=== PATIENT | female | born 1960 | race Caucasian/White ===

== ENCOUNTER → 2018-01-27 08:23 | Outpatient (CLI) | payer OTHER, SELFPAY ==
[2018-01-27 10:43] LABS: Alanine Aminotransferase 37 IU/L (9-52); Albumin 4.4 g/dL (3.5-5.0); Albumin Globulin Ratio 1.6 (1.0-2.8); Alkaline Phosphatase 78 U/L (38-126); Aspartate Aminotransferase 34 IU/L (14-36); BUN Creatinine Ratio 28.8 (6-22); Bilirubin Total 0.5 mg/dL (0.2-1.3); Blood Urea Nitrogen 23 mg/dL (7-17); Calcium 9.3 mg/dL (8.4-10.2); Carbon Dioxide 30 mmol/L (22-32); Chloride 103 mmol/L (98-107); Cholesterol 252 mg/dL (140-199); Estimated Glomerular Filt Rate > 60.0 mL/min (>60); Globulin 2.8 g/dL (1.7-4.1); Glucose 99 mg/dL (70-100); HDL Cholesterol 80 mg/dL (40-60); HEMOLYSIS < 15 (0-50); LDL Cholesterol Calculated 155 mg/dL (<100); Sodium 142 mmol/L (137-145); Total Protein 7.2 g/dL (6.3-8.2); Triglycerides 87 mg/dL (35-150)
== END ==
PROVIDERS: PCP Family Medicine; Visit Provider Family Medicine
DX: Z00.00 Encounter for general adult medical examination without abnormal findings (principal)
CPT/HCPCS: 36415; 80053; 80061

== ENCOUNTER → 2018-02-13 12:07 | Outpatient (CLI) | payer OTHER, SELFPAY ==
--- NOTE | 2018-02-13 12:18 | DI.CT.S_ITS ---
PROCEDURE: CT CHEST WO CON INDICATIONS: surveillance s/p lobectomy TECHNIQUE: Noncontrast 5 mm thick sections acquired from the pulmonary apices to the posterior costophrenic angles. 7 mm thick coronal and sagittal MIP reformats were then acquired. For radiation dose reduction, the following was used: automated exposure control, adjustment of mA and/or kV according to patient size. COMPARISON: [facility], CT, THORAX WITHOUT CONTRAST, 02/14/2017, 9:20. FINDINGS: Image quality: Excellent. Lungs and pleura: Again noted are postsurgical changes in posterior aspect of right lower lobe, unchanged from prior study. Pulmonary nodule or mass is seen. There is no air space opacities. No discrete No pleural effusions or pneumothorax. Central and peripheral airways are patent and normal in caliber. Mediastinum: Heart size is normal. No pericardial effusion. No mediastinal adenopathy by size criteria. Thoracic aorta and central pulmonary arteries are normal in size. Esophagus is normal in caliber. No hiatal hernia. Bones and chest wall: No suspicious bony lesions. No vertebral body compression fractures. No axillary or supraclavicular adenopathy by size criteria. Thyroid gland is within normal limits. Old healed fractures involving right posterior medial 10th and 11th ribs are again seen, which may represent postsurgical changes.. Abdomen: Visualized upper abdominal solid organs and bowel loops appear normal in the absence of contrast. IMPRESSION: No significant changes from previous study. No evidence of recurrence or metastatic disease. Dictated by: Carl Victor M.D. on 02/13/2018 at 14:01 Approved by: Carl Victor M.D. on 02/13/2018 at 14:11
== END ==
PROVIDERS: Family Provider Family Medicine; PCP Family Medicine; Visit Provider Family Medicine
DX: Z08 Encounter for follow-up examination after completed treatment for malignant neoplasm (principal); Z85.110 Personal history of malignant carcinoid tumor of bronchus and lung
CPT/HCPCS: 71250

== ENCOUNTER → 2018-08-17 11:48 | Outpatient (CLI) | payer OTHER, SELFPAY ==
--- NOTE | 2018-08-17 11:49 | DI.MG.S_ITS ---
BILATERAL DIGITAL SCREENING MAMMOGRAM 3D/2D WITH CAD: 08/17/2018 CLINICAL: Routine screening. Comparison is made to exams dated: 06/04/2016 mammogram, 05/01/2015 mammogram, and 02/20/2013 mammogram - [facility]. The tissue of both breasts is extremely dense, which lowers the sensitivity of mammography. Current study was also evaluated with a Computer Aided Detection (CAD) system. There is a 9 mm irregular asymmetry in the right breast middle depth lateral region seen on the craniocaudal view only. Finding is seen only on tomography. No other significant masses, calcifications, or other findings are seen in either breast. IMPRESSION: INCOMPLETE: NEEDS ADDITIONAL IMAGING EVALUATION The 9 mm irregular asymmetry in the right breast is indeterminate. Additional imaging with additional mammographic views and right breast ultrasound is recommended. This exam was interpreted at Station ID: [id number]. NOTE: For mammograms, a report in lay terms will be sent to the patient. Approximately 15% of breast malignancies will not be visualized mammographically. In the management of a palpable breast mass, a negative mammogram must not discourage biopsy of a clinically suspicious lesion. Electronically Signed By: Sandhya flor/:08/18/2018 15:37:40 letter sent: Additional Imaging Needed ACR BI-RADS Category 0: Incomplete 3340F
== END ==
PROVIDERS: PCP Family Medicine; Visit Provider Family Medicine
DX: Z12.31 Encounter for screening mammogram for malignant neoplasm of breast (principal)
CPT/HCPCS: 77063; 77067

== ENCOUNTER → 2018-09-01 09:55 | Outpatient (CLI) | payer OTHER, SELFPAY ==
--- NOTE | 2018-09-01 09:56 | DI.MG.S_ITS ---
UNILATERAL RIGHT DIGITAL DIAGNOSTIC MAMMOGRAM 3D/2D: 09/01/2018 CLINICAL: Additional evaluation requested from prior study. Comparison is made to exams dated: 08/17/2018 mammogram - [facility], 06/04/2016 mammogram, and 05/01/2015 mammogram - [facility]. The tissue of right breast is extremely dense, which lowers the sensitivity of mammography. The 9 mm irregular asymmetry in the right breast posterior depth lateral region seen on the craniocaudal tomography view only is not seen in additional views. No other significant masses or calcifications are seen in the breast. IMPRESSION: There is no mammographic evidence of malignancy. A 1 year screening mammogram is recommended. This exam was interpreted at Station ID: [id number]. NOTE: For mammograms, a report in lay terms will be sent to the patient. Approximately 15% of breast malignancies will not be visualized mammographically. In the management of a palpable breast mass, a negative mammogram must not discourage biopsy of a clinically suspicious lesion. Electronically Signed By: Rocío Serna M.D. lk/:09/01/2018 10:32:31 letter sent: Normal Exam ACR BI-RADS Category 2: Benign Finding(s) 3342F
== END ==
PROVIDERS: PCP Family Medicine; Visit Provider Family Medicine
DX: R92.8 Other abnormal and inconclusive findings on diagnostic imaging of breast (principal); N64.89 Other specified disorders of breast
CPT/HCPCS: 77065; G0279

== ENCOUNTER → 2020-04-15 09:36 | Outpatient (CLI) | payer OTHER, SELFPAY ==
[2020-04-15 10:57] LABS: Add Manual Diff / Slide Review NO; Basophils Absolute Auto 0 /uL (0-100); Basophils Percent Auto 0.8 % (0-2); Eosinophils Absolute Auto 300 /uL (0-450); Eosinophils Percent Auto 6.6 % (2-4); Hematocrit 41.8 % (36-46); Hemoglobin 14.1 g/dL (12.0-16.0); Lymphocytes Absolute Auto 1500 /uL (1100-4500); Lymphocytes Percent Auto 29.4 % (25-40); Mean Corpuscular HGB Conc 33.7 % (30-36); Mean Corpuscular Hemoglobin 30.7 PG (26-34); Mean Corpuscular Volume 91.2 fL (80-100); Monocytes Absolute Auto 400 /uL (0-900); Monocytes Percent Auto 7.9 % (3-14); Neutrophils Absolute Auto 2900 /uL (1500-7000); Neutrophils Percent Auto 55.3 % (50-75); Platelet Count 269 X10^3/uL (150-400); Red Blood Cell Count 4.58 X10^6/uL (4.0-5.2); Red Cell Distribution Width 13.8 % (11.6-14.8); White Blood Cell Count 5.2 X10^3/uL (4.5-11.0)
[2020-04-15 11:06] LABS: Alanine Aminotransferase 31 IU/L (<35); Albumin 4.7 g/dL (3.5-5.0); Albumin Globulin Ratio 1.5 (1.0-2.8); Alkaline Phosphatase 89 U/L (38-126); Aspartate Aminotransferase 32 IU/L (14-36); Bilirubin Total 0.4 mg/dL (0.2-1.3); Blood Urea Nitrogen 18 mg/dL (7-17); Calcium 9.3 mg/dL (8.4-10.2); Carbon Dioxide 27 mmol/L (22-32); Chloride 105 mmol/L (98-107); Estimated Glomerular Filt Rate > 60.0 mL/min (>60); Globulin 3.1 g/dL (1.7-4.1); Glucose 101 mg/dL (80-110); HEMOLYSIS < 15 (0-50); Potassium 4.1 mmol/L (3.4-5.1); Sodium 140 mmol/L (137-145); Total Protein 7.8 g/dL (6.3-8.2)
== END ==
PROVIDERS: PCP Family Medicine; Referring Provider Family Medicine; Visit Provider Family Medicine
DX: Z85.110 Personal history of malignant carcinoid tumor of bronchus and lung (principal); Z86.39 Personal history of other endocrine, nutritional and metabolic disease
CPT/HCPCS: 36415; 80053; 85025

== ENCOUNTER → 2020-05-02 13:32 | Outpatient (CLI) | payer OTHER, SELFPAY ==
[2020-05-05 07:37] LABS: COVID19 Sendout Not Detected (Not Detect)
== END ==
PROVIDERS: PCP Family Medicine; Visit Provider Physician Assistant
DX: Z11.59 Encounter for screening for other viral diseases (principal)
CPT/HCPCS: 87635

== ENCOUNTER 2020-05-05 10:35 | Day surgery (SDC) | payer OTHER, SELFPAY ==
[2020-05-05 10:48] VITALS: BP 135/94; PULSE 103; RESP 16; TEMP 35.7; O2SAT 97; BMI 25.7
[2020-05-05] MEDS: LACTATED RINGERS 1,000 ML 200 ML IV (10:56)
--- NOTE | 2020-05-05 11:40 | PM.HP.1 ---
History of Present Illness History of Present Illness Date Patient Seen: 05/05/20 Time Patient Seen: 11:40 Chief complaint: SCREENING COLONOSCOPY Narrative: The patient presents for colorectal sreening. She had previous colonoscopy 10 years ago which was normal. No personal or family history of colon cancer. On further history denies any recent gastrointestinal symptoms. No nausea, vomiting, abdominal pain, loss of appetite, unexplained weight loss, change in bowel habits, diarrhea, constipation, melena, hematochezia, or bright red blood per rectum. Patient History Medical History Carpal tunnel syndrome (Chronic ~2009) Eczema (Chronic ~1994) Hyperparathyroidism (Chronic ~2012) Lung cancer (Chronic ~2012) Seasonal allergies (Chronic ~1999) Vision disorder (Chronic) Surgical History Anesthesia (Resolved) History of carpal tunnel repair (~2012) History of lobectomy of lung (Resolved ~2012) Status post parathyroidectomy (~2012) Family & Social History Family History Father Heart disease Hypertension High cholesterol Mother Age: 95 Afib Deep vein blood clot of right lower extremity Arthritis High cholesterol Sister Age: 62 Asthma Osteoarthritis Grandfather No problems noted. Grandmother Diabetes mellitus Grandfather Cancer Grandmother No problems noted. Social History: household members significant other Tobacco & Substance use: Smoking Status Never smoker alcohol intake current alcohol intake frequency 0-2 drinks per day Substance Use Type does not use Meds Home Medications and Allergies Home Medications Medication Instructions Recorded Confirmed Type ibuprofen 200 mg tablet 800 mg PO Q8H PRN #0 tab 10/27/18 05/05/20 History aspirin 81 mg PO DAILY 05/05/20 05/05/20 History Allergies Allergy/AdvReac Type Severity Reaction Status Date / Time No Known Allergies Allergy Uncoded 05/05/20 10:43 Review of Systems Review of Systems Narrative: A 10 point review of systems is negative except as noted in the HPI Exam Vital Signs (past 8 hours): - 05/05/20 10:48 Temperature 96.2 F L Pulse Rate 103 H Respiratory Rate 16 Blood Pressure 135/94 H Pulse Oximetry 97 Oxygen Delivery Method Room Air Oxygen Flow Rate 0 Narrative Exam Narrative: General-no acute distress, well nourished HEENT-moist mucous membranes, no scleral icterus Neck-supple, no lymphadenopathy Chest- non labored respirations, clear to auscultation bilaterally Cardiac-regular rate no peripheral edema Abdomen-soft, nontender, non distended Extremities-warm, well perfused Neurological-alert and oriented, no focal deficits Assessment & Plan Assessment & Plan narrative: The patient requires colorectal screening and colonoscopy is recommended. Technical details were discussed. Risks, benefits, alternatives explained. Risks including but not limited to myocardial infarction, aspiration, bleeding, pain, missed lesion, incomplete examination, need for further radiographic studies, colonic perforation, and need for major abdominal surgery were discussed. All questions were answered to their satisfaction, and they are in agreement with this plan.
[2020-05-05] MEDS: MIDAZOLAM 5 MG/5 ML VIAL IV (11:49)
[2020-05-05] MEDS: fentaNYL 250 MCG/5 ML INJ IV (11:49)
[2020-05-05 12:12] VITALS: BP 118/81; PULSE 92; RESP 11; O2SAT 96
[2020-05-05 12:19] VITALS: BP 121/76; PULSE 95; RESP 11; TEMP 36.4; O2SAT 95
--- NOTE | 2020-05-05 12:21 | PM.OP.ENDO ---
Operative Date/Time/Diagnoses Date of procedure: 05/05/20 Time of procedure: 12:21 Pre-op diagnosis: Screening colonoscopy Post-op diagnosis: same Procedure & Clinicians Study performed: Colonoscopy Same procedure as scheduled: Yes Indications: 59-year-old female last colonoscopy 10 years ago presents for routine screening Surgeon: Kris Pineda Procedure Notes SCOAP/Timeout: Performed Procedure in detail: Patient placed in left lateral recumbent position. Time out was performed. Procedural sedation was administered with Versed and Fentanyl. Examination began with a thorough inspection of the perianal area there was no evidence of fissures, fistulae, external hemorrhoids or cutaneous malignancy. The colonoscopy scope was then placed into the rectum the the lumen was insufflated with air. The scope was carefully advanced forward. Ultimately the cecum was intubated and confirmed by identification of the ileocecal valve, the appendiceal orifice and the confluence of the taenia. The scope was then slowly withdrawn examining colon thoroughly in all directions. In the rectum the rectal columns were identified and retroflexion of the scope was performed for inspection of the distal rectum and anal canal. The colonoscopy was notable for the followin. Quality of the preparation-excellent 2. No masses or polyps Scope withdrawal time: 8 Sedation minutes: 24 Specimen(s): none sent Complications: none Impression: Normal colonoscopy Post-procedure Recommendations: Colonscopy in 10 years Disposition: same day surgery
[2020-05-05 12:22] VITALS: BP 125/82; PULSE 91; RESP 10; O2SAT 96
[2020-05-05 12:27] VITALS: BP 135/93; PULSE 93; RESP 15; O2SAT 98
[2020-05-05 12:41] VITALS: BP 132/84; PULSE 91; RESP 16; TEMP 36.8; O2SAT 98
--- NOTE | 2020-05-05 12:43 | SUR.PHASEII ---
Pt up and ambulating gait steady, dressed and ready to go. Pt dcd via wc ins table condition with no c/o and all directions
== END 2020-05-05 12:44 | disposition home or self-care (01) ==
PROVIDERS: PCP Family Medicine; Referring Provider Surgery; Visit Provider Surgery
PROC: 0DJD8ZZ Inspection of Lower Intestinal Tract, Via Natural or Artificial Opening Endoscopic (ICD-10-PCS; CPT 45378; principal; 2020-05-05 11:30)
DX: Z12.11 Encounter for screening for malignant neoplasm of colon (principal)
CPT/HCPCS: 45378; 99152; 99153; J2250; J3010

== ENCOUNTER → 2020-05-09 15:29 | Outpatient (CLI) | payer OTHER, SELFPAY ==
--- NOTE | 2020-05-09 15:30 | DI.MG.S_ITS ---
BILATERAL DIGITAL SCREENING MAMMOGRAM 3D/2D WITH CAD: 05/09/2020 CLINICAL: Routine screening. Comparison is made to exams dated: 08/17/2018 mammogram - [facility], 06/04/2016 mammogram, and 05/01/2015 mammogram - [facility]. The tissue of both breasts is extremely dense, which lowers the sensitivity of mammography. Current study was also evaluated with a Computer Aided Detection (CAD) system. No significant masses, calcifications, or other findings are seen in either breast. There has been no significant interval change. IMPRESSION: NEGATIVE There is no mammographic evidence of malignancy. A 1 year screening mammogram is recommended. This exam was interpreted at Station ID: [id number]. NOTE: For mammograms, a report in lay terms will be sent to the patient. Approximately 15% of breast malignancies will not be visualized mammographically. In the management of a palpable breast mass, a negative mammogram must not discourage biopsy of a clinically suspicious lesion. Electronically Signed By: Rocío goldsmith/angelo:05/09/2020 16:08:08 letter sent: Normal Exam ACR BI-RADS Category 1: Negative 3341F
--- NOTE | 2020-05-09 15:30 | DI.CT.S_ITS ---
PROCEDURE: CT CHEST WO CON INDICATIONS: h/o carcinoid s/p lobectomy TECHNIQUE: Noncontrast 5 mm thick sections acquired from the pulmonary apices to the posterior costophrenic angles. 1 mm lung window, 5 mm thick coronal and sagittal and 7 mm axial MIP reformats were then acquired. For radiation dose reduction, the following was used: automated exposure control, adjustment of mA and/or kV according to patient size. COMPARISON: [facility], CT, CT CHEST WO [facility], 02/13/2018, 12:07. FINDINGS: Image quality: Excellent. Lungs and pleura: Surgical changes of right lower lobectomy. No endobronchial lesions, parenchymal mass, nodules, or consolidations. No pleural effusions. No acute air space opacities. No pleural effusions or pneumothorax. Central and peripheral airways are patent and normal in caliber. Mediastinum: Heart size is normal. No pericardial effusion. No mediastinal adenopathy by size criteria. Thoracic aorta and central pulmonary arteries are normal in size. Esophagus is normal in caliber. No hiatal hernia. Bones and chest wall: No suspicious bony lesions. No vertebral body compression fractures. No axillary or supraclavicular adenopathy by size criteria. Thyroid gland is unremarkable . Abdomen: Visualized upper abdominal solid organs and bowel loops appear normal in the absence of contrast. IMPRESSION: Stable exam without evidence of residual or recurrent disease. Dictated by: Sandhya Ramires M.D. on 05/09/2020 at 16:55 Approved by: Sandhya Ramires M.D. on 05/09/2020 at 16:58
== END ==
PROVIDERS: PCP Family Medicine; Referring Provider Family Medicine; Visit Provider Family Medicine
DX: Z12.31 Encounter for screening mammogram for malignant neoplasm of breast; Z85.110 Personal history of malignant carcinoid tumor of bronchus and lung
CPT/HCPCS: 71250; 77063; 77067

== ENCOUNTER → 2020-06-30 11:59 | Outpatient (CLI) | payer OTHER, SELFPAY ==
[2020-06-30 12:52] LABS: BUN Creatinine Ratio 26.9 (6-22); Blood Urea Nitrogen 21 mg/dL (7-17); Calcium 9.5 mg/dL (8.4-10.2); Carbon Dioxide 28 mmol/L (22-32); Chloride 105 mmol/L (98-107); Estimated Glomerular Filt Rate > 60.0 mL/min (>60); Glucose 92 mg/dL (80-110); Potassium 4.9 mmol/L (3.4-5.1); Sodium 138 mmol/L (137-145)
[2020-06-30 12:54] LABS: HEMOLYSIS 61 (0-50)
== END ==
PROVIDERS: PCP Family Medicine; Referring Provider Family Medicine; Visit Provider Family Medicine
DX: I10 Essential (primary) hypertension (principal)
CPT/HCPCS: 36415; 80048

== ENCOUNTER → 2020-09-24 09:06 | Outpatient (CLI) | payer OTHER, SELFPAY ==
[2020-09-24] MEDS: COVID-19 VACC #1, MRNA(MOD) 100 MCG/0.5 ML VIAL IM (09:15)
== END ==
PROVIDERS: PCP Family Medicine; Visit Provider Internal Medicine
DX: Z23 Encounter for immunization (principal)
CPT/HCPCS: 0011A; 91301

== ENCOUNTER 2020-10-21 10:02 | Inpatient (IN) | payer OTHER, SELFPAY ==
[2020-10-21] VITALS (23 sets, daily range): BP systolic 96–136; BP diastolic 53–88; PULSE 70–118; RESP 12–20; TEMP 36.2–37.3; O2SAT 93–99; BMI 25.5
--- NOTE | 2020-10-21 | PATH_ITS ---
[facility] Accession Number: [id number] . 01 Material submitted: . appendix - APPENDIX . 02 Diagnosis: Appendix, Appendectomy: Acute suppurative appendicitis with perforation and serositis. Negative for dysplasia and malignancy. MRV 10/27/2020 1222 Local . 02 Electronically signed: . Gabriella Piña MD, Pathologist NPI- [id number] . 01 Gross description: . The specimen is received in formalin, labeled appendix and consists of a 7.8 cm in length by 1.0 cm in diameter vermiform appendix with attached pike-yellow lobulated mesoappendix measuring 4.0 x 1.5 x 1.0 cm in aggregate. The serosa is pike-pink and ragged with adherent pike purulent exudate. Sectioning reveals a pike-pink to pike-green mucosa and a lumen measuring 0.5 cm in diameter. [employer] sections are submitted to include the margin (blue), central cross-sections and bisected fimbria in cassettes A1-A2. ([id number]) /MRV 10/23/2020 1048 Local . 02 Pathologist provided ICD-10: K35.20 . 02 CPT . 712288 Performed at: 01 [facility] [address], [place], [place] [id number] MD Harris Zepeda MD Phone: [phone] Performed at: 02 [facility] [address] [place], [place] [id number] MD Gabriella Piña MD Phone: [phone]
[2020-10-21 10:43] LABS: COVID19 -Nasal RAPID Negative (Negative)
[2020-10-21 11:10] LABS: Add Manual Diff / Slide Review NO; Basophils Absolute Auto 0 /uL (0-100); Basophils Percent Auto 0.5 % (0-2); Eosinophils Absolute Auto 100 /uL (0-450); Eosinophils Percent Auto 1.3 % (2-4); Hematocrit 40.3 % (36-46); Hemoglobin 13.5 g/dL (12.0-16.0); Lymphocytes Absolute Auto 800 /uL (1100-4500); Mean Corpuscular HGB Conc 33.6 % (30-36); Mean Corpuscular Volume 89.4 fL (80-100); Monocytes Absolute Auto 800 /uL (0-900); Monocytes Percent Auto 8.3 % (3-14); Neutrophils Absolute Auto 8300 /uL (1500-7000); Neutrophils Percent Auto 81.9 % (50-75); Platelet Count 314 X10^3/uL (150-400); Red Blood Cell Count 4.51 X10^6/uL (4.0-5.2); Red Cell Distribution Width 13.4 % (11.6-14.8); White Blood Cell Count 10.1 X10^3/uL (4.5-11.0)
[2020-10-21 11:19] LABS: Lactate (Lactic Acid) 1.8 mmol/L (0.7-2.1)
[2020-10-21 11:21] LABS: Alanine Aminotransferase 39 IU/L (<35); Albumin Globulin Ratio 1.1 (1.0-2.8); Alkaline Phosphatase 83 U/L (38-126); Aspartate Aminotransferase 40 IU/L (14-36); BUN Creatinine Ratio 16.5 (6-22); Bilirubin Total 0.5 mg/dL (0.2-1.3); Blood Urea Nitrogen 13 mg/dL (7-17); Calcium 9.4 mg/dL (8.4-10.2); Carbon Dioxide 25 mmol/L (22-32); Chloride 100 mmol/L (98-107); Estimated Glomerular Filt Rate > 60.0 mL/min (>60); Globulin 3.7 g/dL (1.7-4.1); Glucose 124 mg/dL (80-110); HEMOLYSIS 25 (0-50); Lipase 26 U/L (23-300); Potassium 3.4 mmol/L (3.4-5.1); Sodium 136 mmol/L (137-145); Total Protein 7.7 g/dL (6.3-8.2)
[2020-10-21] MEDS: SODIUM CHLORIDE 0.9% 1,000 ML 1000 ML IV (11:45)
--- NOTE | 2020-10-21 11:45 | ED_ITS ---
HPI - General Adult General Chief complaint: Abdominal Pain Stated complaint: stomach pain /fever Time Seen by Provider: 10/21/20 10:19 Source: patient Mode of arrival: Ambulatory Limitations: no limitations History of Present Illness HPI narrative: 60-year-old female sent over from the walk-in clinic for act lateral lower abdomen right being greater than left pain. She states that her symptoms started approximately 4 days ago. She initially thought that she had food poisoning. Had vomiting which has since improved which did not change her abdominal pain at all. She thought that she was also constipated so she took some laxatives and then developed diarrhea. This is not changed her abdominal pain at all. She is not having any urinary symptoms or vaginal bleeding. She did have a fever couple days ago but that has improved. Overall she states her abdominal pain now is better than what it was but not completely gone. Related Data Home Medications Medication Instructions Recorded Confirmed ibuprofen 200 mg tablet 800 mg PO Q8H PRN #0 tab 10/27/18 10/21/20 aspirin 81 mg PO BEDTIME 05/05/20 10/21/20 amlodipine 10 mg PO BEDTIME 10/21/20 10/21/20 Allergies Allergy/AdvReac Type Severity Reaction Status Date / Time lisinopril AdvReac Intermediate Cough Verified 10/21/20 14:21 losartan AdvReac Intermediate Cough Verified 10/21/20 14:21 Review of Systems Constitutional Constitutional: Denies fatigue, Reports fever(s) and Denies headache(s) ENT Ears, Nose, Mouth, and Throat: Denies headache(s) and Denies sore throat Cardiovascular Cardiovascular: Denies chest pain and Denies dyspnea Respiratory Respiratory: Denies dyspnea Gastrointestinal Gastrointestinal: Reports abdominal pain, Reports diarrhea, Reports nausea and Reports vomiting Genitourinary Genitourinary: Denies dysuria, Denies urinary hesitancy and Denies urinary urgency Genitourinary: Denies dysuria, Denies urinary hesitancy, Denies urinary urgency and Denies vaginal discharge Musculoskeletal Musculoskeletal: Denies arthralgias and Denies myalgias Integumentary/Breasts Skin/Breast: Denies lesions and Denies rash Neurologic Neurologic: Denies behavioral changes and Denies headache(s) Psychiatric Psychiatric: Denies behavioral changes Endocrine Endocrine: Denies fatigue Hematologic/Lymphatic On Anticoagulants: No Allergic/Immunologic Allergic/Immunologic: Denies urticaria Patient History Medical History Carpal tunnel syndrome (~2009) Eczema (~1994) Hyperparathyroidism (~2012) Lung cancer (~2012) Seasonal allergies (~1999) Vision disorder Surgical History Anesthesia History of carpal tunnel repair (~2012) History of lobectomy of lung (~2012) Status post parathyroidectomy (~2012) Family History Father Heart disease Hypertension High cholesterol Mother Age: 95 Afib Deep vein blood clot of right lower extremity Arthritis High cholesterol Sister Age: 62 Asthma Osteoarthritis Grandfather No problems noted. Grandmother Diabetes mellitus Grandfather Cancer Grandmother No problems noted. Social History marital status: unmarried,single number of children: 0 household members: significant other pets and animals: Yes education level: college occupational status: other Smoking Status: Never smoker alcohol intake: current substance use type: does not use Smoking Status: Never smoker alcohol intake frequency: 0-2 drinks per day Substance Use Type: does not use Exam Initial Vital Signs Initial Vital Signs: Vital Signs Temperature 97.5 F L 10/21/20 10:17 Pulse Rate 118 H 10/21/20 10:17 Respiratory Rate 20 10/21/20 10:17 Blood Pressure 124/81 10/21/20 10:17 Pulse Oximetry 99 10/21/20 10:17 Const General: cooperative and comfortable Limitations: mental status not altered [facility] Head: normal to inspection and normocephalic Eyes General: appearance normal, both eyes and all related structures Resp Effort & Inspection: normal respiratory effort Auscultation: clear to auscultation bilaterally Cardio Rate: tachycardic Rhythm: regular rhythm GI Inspection: non-distended Palpation: soft and tender (Bilateral lower abdomen right being greater than left) General: bladder normal to palpation Bimanual Exam- Vagina & Uterus: bladder normal to palpation Back/Spine/Pelvis Back: No CVA tenderness Skin Lesions: no lesions Rashes: no rashes Neuro General: patient alert, patient awake and patient oriented x3 Cognition: normal cognition Speech: speech normal Extrem General: normal to inspection and capillary refill normal Psych Appearance: grossly normal and well kempt Course Orders Ordered: ED Orders 10/21/20 10:26 COVID19 -Nasal swab/Pre-Proc Stat 10/21/20 10:50 Complete Blood Count AUTO DIFF Stat Comprehensive Metabolic Panel Stat Lactate (Lactic Acid) Stat Lipase Stat 10/21/20 11:15 Urine Microscopic Stat 10/21/20 11:25 Blood Culture Stat 10/21/20 12:02 CT abdomen pelvis w con Stat 10/21/20 12:40 Consult to General Surgery Stat Acetaminophen (Acetaminophen 325 Mg Tablet) 650 mg PO Q6HR KESHAWN Last Admin: 10/21/20 17:56 Dose: 650 mg Documented by: MAGALIE Amlodipine Besylate (Amlodipine 5 Mg Tablet) 10 mg PO BEDTIME KESHAWN Enoxaparin Sodium (Enoxaparin 40 Mg/0.4 Ml Syringe) 40 mg SUBCUT DAILY KESHAWN Hydromorphone HCl (Hydromorphone 0.5 Mg Inj) 0.5 mg IV Q6H PRN PRN Reason: Pain, Moderate (4-6) Lactated Ringer's (Lactated Ringers) 1,000 mls @ 120 mls/hr IV CONT KESHAWN Last Admin: 10/21/20 17:52 Dose: 120 mls/hr Documented by: MAGALIE Piperacillin/Tazobactam/Dextrose (Zosyn) 3.375 gm in 50 mls @ 12.5 mls/hr IV Q8H KESHAWN Ketorolac Tromethamine (Ketorolac 30 Mg/Ml Vial) 30 mg IV Q6HR PRN PRN Reason: Pain, Severe (7-10) Stop: 10/26/20 16:41 Naloxone HCl (Naloxone 0.4 Mg/Ml Vial) 0.2 mg IV Q2MIN PRN PRN Reason: Opiate Reversal Ondansetron HCl (Ondansetron 4 Mg/2 Ml Inj) 4 mg IV Q8HR PRN PRN Reason: Nausea And Vomiting Last Admin: 10/21/20 17:56 Dose: 4 mg Documented by: MAGALIE Oxycodone HCl (Oxycodone Ir 5 Mg Tablet) 5 mg PO Q6HR PRN PRN Reason: Pain, Moderate (4-6) Last Admin: 10/21/20 17:56 Dose: 5 mg Documented by: MAGALIE Discontinued Medications Acetaminophen (Acetaminophen 325 Mg Tablet) 975 mg PO NOW ONE Stop: 10/21/20 15:14 Last Admin: 10/21/20 15:18 Dose: 975 mg Documented by: SARA Benzocaine (Benzocaine/Menthol 1 Nena Pkt) 1 each PO PRN PRN PRN Reason: Sore Throat Bupivacaine HCl (Bupivacaine 0.25% (Pf) Vial) 30 ml INJ NOW ONE Stop: 10/21/20 15:53 Last Admin: 10/21/20 15:52 Dose: 30 ml Documented by: GUILLERMINA Fentanyl (Fentanyl 100 Mcg/2 Ml Inj) 0 mcg IV Q5M PRN PRN Reason: Pain, Moderate (4-6) Hydromorphone HCl (Hydromorphone 2 Mg Inj) 0 mg IV Q5M PRN PRN Reason: Pain, Moderate (4-6) Hydroxyzine HCl (Hydroxyzine 50 Mg/Ml Inj) 25 mg IM NOW PRN PRN Reason: Pain, Mild (1-3) Hydroxyzine Pamoate (Hydroxyzine Pamoate 25 Mg Capsule) 25 mg PO NOW PRN PRN Reason: Pain, Mild (1-3) Sodium Chloride (Normal Saline 0.9%) 1,000 mls @ 1,000 mls/hr IV BOLUS ONE Stop: 10/21/20 11:18 Last Infusion: 10/21/20 12:32 Dose: 0 mls/hr Documented by: Admin: 10/21/20 11:45 Dose: 1,000 mls/hr Documented by: ADDIS Piperacillin Sod/Tazobactam (Sod 4.5 gm/ Sodium Chloride) 100 mls @ 200 mls/hr IV NOW ONE Stop: 10/21/20 12:37 Last Infusion: 10/21/20 13:38 Dose: 0 mls/hr Documented by: Admin: 10/21/20 13:01 Dose: 200 mls/hr Documented by: TOYA Sodium Chloride (Normal Saline 0.9%) 1,000 mls @ 125 mls/hr IV CONT KESHAWN Last Infusion: 10/21/20 14:01 Dose: 0 mls/hr Documented by: Admin: 10/21/20 13:01 Dose: 125 mls/hr Documented by: TOYA Lactated Ringer's (Lactated Ringers) 1,000 mls @ 42 mls/hr IV CONT KESHAWN Last Infusion: 10/21/20 17:12 Dose: 0 mls/hr Documented by: Admin: 10/21/20 16:23 Dose: 42 mls/hr Documented by: МАРИНА Infusion: 10/21/20 16:23 Dose: 42 mls/hr Documented by: МАРИНА Admin: 10/21/20 15:17 Dose: 42 mls/hr Documented by: SARA Lorazepam (Lorazepam 2 Mg/Ml Inj) 0.25 mg IV NOW PRN PRN Reason: Anxiety Meperidine HCl (Meperidine 50 Mg/Ml Inj) 12.5 mg IV PACUNOW PRN PRN Reason: Mild pain or shivering Metoclopramide HCl (Metoclopramide 10 Mg/2 Ml Inj) 10 mg IV NOW PRN PRN Reason: Nausea And Vomiting Ondansetron HCl (Ondansetron 4 Mg/2 Ml Inj) 4 mg IV NOW PRN PRN Reason: Nausea And Vomiting Oxycodone HCl (Oxycodone Ir 5 Mg Tablet) 5 mg PO PACUNOW PRN PRN Reason: Mild or moderate pain Vital Signs Vital signs: Vital Signs - 8 hr 10/21/20 12:00 10/21/20 12:01 10/21/20 12:30 Temperature Pulse Rate 90 89 93 H Blood Pressure 124/78 136/88 Pulse Oximetry 98 98 99 10/21/20 12:31 10/21/20 13:00 10/21/20 13:30 Temperature 99.2 F Pulse Rate 95 H 101 H Blood Pressure 135/81 130/80 Pulse Oximetry 98 98 Medical Decision Making Medical Records Medical records reviewed: Yes I reviewed the patient's medical records. Lab Data Lab results reviewed: Yes I reviewed the patient's lab results. Result diagrams: 10/21/20 10:50 10/21/20 10:50 Labs: Lab Results 10/21/20 10/21/20 10/21/20 Range/Units 10:26 10:50 10:50 WBC 10.1 (4.5-11.0) X10^3/uL RBC 4.51 (4.0-5.2) X10^6/uL Hgb 13.5 (12.0-16.0) g/dL Hct 40.3 (36-46) % MCV 89.4 (80-100) fL MCH 30.0 (26-34) PG MCHC 33.6 (30-36) % RDW 13.4 (11.6-14.8) % Plt Count 314 (150-400) X10^3/uL Neut % (Auto) 81.9 H (50-75) % Lymph % (Auto) 8.0 L (25-40) % [place] % (Auto) 8.3 (3-14) % Eos % (Auto) 1.3 L (2-4) % Baso % (Auto) 0.5 (0-2) % Neut # (Auto) 8300 H (0291-0387) /uL Lymph # (Auto) 800 L (3983-0901) /uL [place] # (Auto) 800 (0-900) /uL Eos # (Auto) 100 (0-450) /uL Baso # (Auto) 0 (0-100) /uL Sodium 136 L (137-145) mmol/L Potassium 3.4 (3.4-5.1) mmol/L Chloride 100 (98-107) mmol/L Carbon Dioxide 25 (22-32) mmol/L BUN 13 (7-17) mg/dL Creatinine 0.79 (0.52-1.04) mg/dL Estimated GFR > 60.0 (>60) mL/min BUN/Creatinine Ratio 16.5 (6-22) Glucose 124 H (80-110) mg/dL Lactate (0.7-2.1) mmol/L Calcium 9.4 (8.4-10.2) mg/dL Total Bilirubin 0.5 (0.2-1.3) mg/dL AST 40 H (14-36) IU/L ALT 39 H (<35) IU/L Alkaline Phosphatase 83 (38-126) U/L Total Protein 7.7 (6.3-8.2) g/dL Albumin 4.0 (3.5-5.0) g/dL Globulin 3.7 (1.7-4.1) g/dL Albumin/Globulin Ratio 1.1 (1.0-2.8) Lipase 26 (23-300) U/L Urine RBC (0-5/HPF) Urine WBC (0-5/HPF) Ur Squamous Epith Cells (0-5/HPF) Urine Bacteria (None) Ur Culture Indicated? SARS-CoV-2 (PCR) Negative (Negative) 10/21/20 10/21/20 Range/Units 10:50 11:15 WBC (4.5-11.0) X10^3/uL RBC (4.0-5.2) X10^6/uL Hgb (12.0-16.0) g/dL Hct (36-46) % MCV (80-100) fL MCH (26-34) PG MCHC (30-36) % RDW (11.6-14.8) % Plt Count (150-400) X10^3/uL Neut % (Auto) (50-75) % Lymph % (Auto) (25-40) % [place] % (Auto) (3-14) % Eos % (Auto) (2-4) % Baso % (Auto) (0-2) % Neut # (Auto) (2212-4692) /uL Lymph # (Auto) (5015-4839) /uL [place] # (Auto) (0-900) /uL Eos # (Auto) (0-450) /uL Baso # (Auto) (0-100) /uL Sodium (137-145) mmol/L Potassium (3.4-5.1) mmol/L Chloride (98-107) mmol/L Carbon Dioxide (22-32) mmol/L BUN (7-17) mg/dL Creatinine (0.52-1.04) mg/dL Estimated GFR (>60) mL/min BUN/Creatinine Ratio (6-22) Glucose (80-110) mg/dL Lactate 1.8 (0.7-2.1) mmol/L Calcium (8.4-10.2) mg/dL Total Bilirubin (0.2-1.3) mg/dL AST (14-36) IU/L ALT (<35) IU/L Alkaline Phosphatase (38-126) U/L Total Protein (6.3-8.2) g/dL Albumin (3.5-5.0) g/dL Globulin (1.7-4.1) g/dL Albumin/Globulin Ratio (1.0-2.8) Lipase (23-300) U/L Urine RBC 1-5/hpf (0-5/HPF) Urine WBC 1-5/hpf (0-5/HPF) Ur Squamous Epith Cells 1-5 /hpf (0-5/HPF) Urine Bacteria Moderate (10-30) H (None) Ur Culture Indicated? Cult not indicated SARS-CoV-2 (PCR) (Negative) Urine Dip Bedside Urine Glucose Negative Bedside Urine Bilirubin - Negative Bedside Urine Ketone - Negative Urine Specific Lapel 1.010 Bedside Urine Occult Blood +/- Bedside Urine pH 6 Bedside Urine Protein + 30 Bedside Urine Urobilinogen - Negative Bedside Urine Nitrite - Negative Bedside Urine Leukocytes - Negative Esterase Point of care testing: Urine Dip Bedside Urine Glucose Negative Bedside Urine Bilirubin - Negative Bedside Urine Ketone - Negative Urine Specific [place]el 1.010 Bedside Urine Occult Blood +/- Bedside Urine pH 6 Bedside Urine Protein + 30 Bedside Urine Urobilinogen - Negative Bedside Urine Nitrite - Negative Bedside Urine Leukocytes - Negative Esterase Imaging Data CT scan - abdomen/pelvis: Radiologist's Impression: [address] [id number] Scan ReportSigned Patient: Emily Roche CMR#: [id number]: 9Acct:[id number]/Sex: 60 / FDate of Service: 10/21/20Loc: EDAccession Number: [id number] Procedure: CT abdomen pelvis w con Ordering Provider: Yosef Solis D.O. PROCEDURE: CT ABDOMEN PELVIS W CON INDICATIONS: Right lower quadrant abdominal pain TECHNIQUE: After the administration of intravenous contrast, 5 mm thick sections acquired from the diaphragm to the symphysis. 5 mm coronal and sagittal reformats were acquired. For radiation dose reduction, the following was used: automated exposure control, adjustment of mA and/or kV according to patient size. COMPARISON: [facility], CT, CT CHEST WO CON, 05/09/2020, 15:45. FINDINGS: Image quality: Excellent. ABDOMEN: Lung bases: Lung bases are clear. Heart size is normal. Solid organs: Liver is normal in size. Multiple punctate areas of hepatic low-attenuation are identified, unchanged. Gallbladder is unremarkable. Biliary system is non dilated. Pancreas enhances normally. Spleen is normal in size and enhancement. No adrenal nodules. Kidneys demonstrate normal size and enhancement, without hydronephrosis. Right renal cyst is noted. Peritoneum and bowel: There is a markedly enlarged tubular structure in the right lower quadrant, measuring 4.5 x 1.0 cm. Surrounding inflammatory change is noted. No appendicolith is identified. No perforation. There is inflammatory change in the adjacent bowel. No free fluid or air. Nodes and vessels: No retroperitoneal or mesenteric adenopathy by size criteria. Aorta and inferior vena cava are normal in size. Miscellaneous: No ventral hernias. PELVIS: Genitourinary: Bladder wall thickness is normal. Miscellaneous: No inguinal hernias or adenopathy. Bones: No suspicious bony lesions. No vertebral body compression fractures. IMPRESSION: 1. Markedly enlarged appendix without appendicolith or visualized perforation most consistent with appendicitis. Adjacent bowel inflammation is noted. The above findings were discussed with Dr. Yosef Solis on 10/21/2020 at 11:20am AKST. Dictated by: Demetrice Ortiz M.D. on 10/21/2020 at 11:16 Approved by: Demetrice Ortiz M.D. on 10/21/2020 at 11:30 MDM Narrative Medical decision making narrative: CT scan shows appendicitis. This does fit her history and physical. Was given antibiotics. Discussed case with Dr. Pineda with General surgery. Will admit for surgical treatment. Discuss the findings of the CT scan with the patient. She expressed understanding and agreement. Discharge Plan Departure Patient Disposition: Admitted As Inpatient Clinical Impression: Acute appendicitis Admit Date/Time: 10/21/20 13:49 Admit Provider: Kris Pineda
--- NOTE | 2020-10-21 12:02 | DI.CT.S_ITS ---
PROCEDURE: CT ABDOMEN PELVIS W CON INDICATIONS: Right lower quadrant abdominal pain TECHNIQUE: After the administration of intravenous contrast, 5 mm thick sections acquired from the diaphragm to the symphysis. 5 mm coronal and sagittal reformats were acquired. For radiation dose reduction, the following was used: automated exposure control, adjustment of mA and/or kV according to patient size. COMPARISON: [facility], CT, CT CHEST WO CON, 05/09/2020, 15:45. FINDINGS: Image quality: Excellent. ABDOMEN: Lung bases: Lung bases are clear. Heart size is normal. Solid organs: Liver is normal in size. Multiple punctate areas of hepatic low-attenuation are identified, unchanged. Gallbladder is unremarkable. Biliary system is non dilated. Pancreas enhances normally. Spleen is normal in size and enhancement. No adrenal nodules. Kidneys demonstrate normal size and enhancement, without hydronephrosis. Right renal cyst is noted. Peritoneum and bowel: There is a markedly enlarged tubular structure in the right lower quadrant, measuring 4.5 x 1.0 cm. Surrounding inflammatory change is noted. No appendicolith is identified. No perforation. There is inflammatory change in the adjacent bowel. No free fluid or air. Nodes and vessels: No retroperitoneal or mesenteric adenopathy by size criteria. Aorta and inferior vena cava are normal in size. Miscellaneous: No ventral hernias. PELVIS: Genitourinary: Bladder wall thickness is normal. Miscellaneous: No inguinal hernias or adenopathy. Bones: No suspicious bony lesions. No vertebral body compression fractures. IMPRESSION: 1. Markedly enlarged appendix without appendicolith or visualized perforation most consistent with appendicitis. Adjacent bowel inflammation is noted. The above findings were discussed with Dr. Yosef Solis on 10/21/2020 at 11:20am AK. Dictated by: Demetrice Ortiz M.D. on 10/21/2020 at 11:16 Approved by: Demetrice Ortiz M.D. on 10/21/2020 at 11:30
[2020-10-21 12:13] LABS: Bacteria Urine Moderate (10-30); Culture Indicated Urine Cult Not Indicated; RBC Urine 1-5/HPF (0-5/HPF); Squamous Epithelial Cell Urine 1-5 /HPF (0-5/HPF); WBC Urine 1-5/HPF (0-5/HPF)
[2020-10-21] MEDS: PIPERACILLIN/TAZO 4.5 GM in SODIUM CHLORIDE 0.9% 100 ML 200 ML IV (13:01)
[2020-10-21] MEDS: SODIUM CHLORIDE 0.9% 1,000 ML 125 ML IV (13:01)
--- NOTE | 2020-10-21 13:58 | P.HP_ITS ---
History of Present Illness History of Present Illness Date Patient Seen: 10/21/20 Time Patient Seen: 13:58 Chief complaint: stomach pain /fever Narrative: 60-year-old female seen in the emergency room for acute appendicitis. She developed abdominal pain 4 days ago associated with nausea and emesis. She had waxing and waning of her symptoms developed a fever of 103 and ultimately presented to the emergency room today for further evaluation. CT abdomen pelvis demonstrates a dilated appendix no free air or abscess. At admission temperature 99.2 heart rate 95 WBC 10 82% neutrophils. Received IV fluid and Zosyn in the emergency room. No prior abdominal surgery. 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 Not on anticoagulation. Patient History Medical History Carpal tunnel syndrome (~2009) Eczema (~1994) Hyperparathyroidism (~2012) Lung cancer (~2012) Seasonal allergies (~1999) Vision disorder Surgical History Anesthesia History of carpal tunnel repair (~2012) History of lobectomy of lung (~2012) Status post parathyroidectomy (~2012) Family & Social History Family History Father Heart disease Hypertension High cholesterol Mother Age: 95 Afib Deep vein blood clot of right lower extremity Arthritis High cholesterol Sister Age: 62 Asthma Osteoarthritis Grandfather No problems noted. Grandmother Diabetes mellitus Grandfather Cancer Grandmother No problems noted. Social History: household members significant other Safety & Behavioral: Feels Safe in Current Yes Environment Been Physically Hurt or No Threatened By a Person Tobacco & Substance use: Smoking Status Never smoker alcohol intake current alcohol intake frequency 0-2 drinks per day Substance Use Type does not use Meds Home Medications and Allergies Home Medications Medication Instructions Recorded Confirmed Type ibuprofen 200 mg tablet 800 mg PO Q8H PRN #0 tab 10/27/18 10/21/20 History aspirin 81 mg PO BEDTIME 05/05/20 10/21/20 History amlodipine 10 mg PO BEDTIME 10/21/20 10/21/20 History Allergies Allergy/AdvReac Type Severity Reaction Status Date / Time lisinopril AdvReac Intermediate Cough Verified 10/21/20 10:22 losartan AdvReac Intermediate Cough Verified 10/21/20 10:22 Review of Systems Review of Systems ROS: Yes All systems reviewed with the patient and are negative except as othe rwise documented Exam Vital Signs (past 8 hours): - 10/21/20 10:17 10/21/20 12:00 10/21/20 12:01 Temperature 97.5 F L Pulse Rate 118 H 90 89 Respiratory Rate 20 Blood Pressure 124/81 124/78 Pulse Oximetry 99 98 98 10/21/20 12:30 10/21/20 12:31 10/21/20 13:00 Temperature 99.2 F Pulse Rate 93 H 95 H Respiratory Rate Blood Pressure 136/88 135/81 Pulse Oximetry 99 98 Oxygen Delivery Method Room Air Narrative Exam Narrative: GENERAL-well developed adult woman, no acute distress HEENT-no scleral icterus, hearing intact NECK-no JVD, trachea midline CVS- regular rate, no peripheral edema RESP-unlabored respiratory effort, no audible wheezing GI-tender no peritonitis right lower quadrant. MSK-no cyanosis or clubbing, extremities without deformity SKIN-warm, dry NEURO-alert and oriented, no focal deficits PYSCH-Appropriate mood and affect Objective Labs Result Diagrams: 10/21/20 10:50 10/21/20 10:50 Labs: Laboratory Results - last 24 hr 10/21/20 10/21/20 10/21/20 10:26 10:50 10:50 WBC 10.1 RBC 4.51 Hgb 13.5 Hct 40.3 MCV 89.4 MCH 30.0 MCHC 33.6 RDW 13.4 Plt Count 314 Neut % (Auto) 81.9 H Lymph % (Auto) 8.0 L [place] % (Auto) 8.3 Eos % (Auto) 1.3 L Baso % (Auto) 0.5 Neut # (Auto) 8300 H Lymph # (Auto) 800 L [place] # (Auto) 800 Eos # (Auto) 100 Baso # (Auto) 0 Sodium 136 L Potassium 3.4 Chloride 100 Carbon Dioxide 25 BUN 13 Creatinine 0.79 Estimated GFR > 60.0 BUN/Creatinine Ratio 16.5 Glucose 124 H Lactate Calcium 9.4 Total Bilirubin 0.5 AST 40 H ALT 39 H Alkaline Phosphatase 83 Total Protein 7.7 Albumin 4.0 Globulin 3.7 Albumin/Globulin Ratio 1.1 Lipase 26 Urine RBC Urine WBC Ur Squamous Epith Cells Urine Bacteria Ur Culture Indicated? SARS-CoV-2 (PCR) Negative 10/21/20 10/21/20 10:50 11:15 WBC RBC Hgb Hct MCV MCH MCHC RDW Plt Count Neut % (Auto) Lymph % (Auto) [place] % (Auto) Eos % (Auto) Baso % (Auto) Neut # (Auto) Lymph # (Auto) [place] # (Auto) Eos # (Auto) Baso # (Auto) Sodium Potassium Chloride Carbon Dioxide BUN Creatinine Estimated GFR BUN/Creatinine Ratio Glucose Lactate 1.8 Calcium Total Bilirubin AST ALT Alkaline Phosphatase Total Protein Albumin Globulin Albumin/Globulin Ratio Lipase Urine RBC 1-5/hpf Urine WBC 1-5/hpf Ur Squamous Epith Cells 1-5 /hpf Urine Bacteria Moderate (10-30) H Ur Culture Indicated? Cult not indicated SARS-CoV-2 (PCR) Assessment & Plan Assessment & Plan narrative: 60-year-old woman with acute appendicitis. -laparoscopic appendectomy Discussion with the patient in regards to the nature of appendicitis. We discussed both operative and non operative management. She would like to proceed with a laparoscopic appendectomy. Operative risks including bleeding, infection, damage to surrounding structures, conversion to open were discussed. Questions have been answered she is in agreement this plan. She may be able to go home this evening if she is not perforated she is then she would remain under observation for IV antibiotic therapy.
[2020-10-21] MEDS: LACTATED RINGERS 1,000 ML 42 ML IV ×2 (15:17→16:23)
[2020-10-21] MEDS: ACETAMINOPHEN 325 MG TABLET 975 MG PO (15:18)
--- NOTE | 2020-10-21 15:46 | SUR.OPER ---
Supine on padded OR bed, head on pillow, safety belt at thigh, left arm padded and tucked at side. Right arm secured on padded arm oard <90 degrees abduction. Legs uncrossed. Tape over blanket to secure lower legs.
[2020-10-21] MEDS: BUPIVACAINE 0.25% (PF) VIAL 30 ML INJ (15:52)
--- NOTE | 2020-10-21 16:45 | PM.OP.1 ---
Operative Date/Time/Diagnoses Date of procedure: 10/21/20 Time of procedure: 16:45 Pre-op diagnosis: acute appendicitis Post-op diagnosis: other (perforated appendicitis) Procedure & Clinicians Procedure: laparoscopic appendectomy Same procedure as scheduled: Yes Indications: 4 days of abdominal pain CT demonstrates appendicitis without abcess Surgeon: Kris Pineda Anesthesia Type: General Operative Notes Findings: perforated appendix, middle portion is necrotic. abscess cavity Specimen(s): other (appendix, abscess cavity for culture) Estimated Blood Loss (mL): 20 Procedure in detail: Patient was brought to the operating room placed supine on the table. Bilateral lower extremity compression devices were applied. Anesthesia was induced and they intubated with an endotracheal tube. They received 3.375 g of Zosyn prior to skin incision. The left arm was tucked and appropriately padded. They were prepped and draped in sterile fashion. Time-out was performed. An infraumbilical incision was made the umbilical stalk was grasped and elevated and incision was made and the abdomen was entered atraumatically. A 12 mm balloon trocar was then placed through the incision and pneumoperitoneum of 14 mm Hg was established. The scope was then inserted and the abdomen inspected, there was no evidence of injury upon entry. There was a loop small plastered to the anterior aspect of the abdominal wall. Single 5 mm port was placed the left lower quadrant and then the loop of small bowel was gently from the abdominal wall and upon doing this there was purulent drainage. A 2nd 5 mm port was then placed in the lower midline. A thorough laparoscopic evaluation was performed inspecting all four quadrants. The appendix was located in the right lower quadrant and within abscess cavity. It was gently debrided and copiously irrigated. The appendix was was mobilized from its lateral attachments. The appendix was perforated and necrotic in its mid portion. Base of the appendix was viable. The appendix was grasped and a window within the mesentery was made at the base of the appendix using the [place] dissector with care to avoid injuring the cecum. The mesoappendix was then divided using the endo-stapler with a staple length of 2.5 mm-white load. The mesenteric staple line was inspected for hemostasis. The appendix was then amputated flush at the cecum using the endo-stapler blue load. The specimen was retrieved using a endoscopic retrieval bad through the 10 mm infra-umbilical port. The right paracolic gutter and the pouch of Keshav were irrigated . A 19 Vietnamese Mars drain was in place in the right gutter and brought out through the left abdominal wall. The 5 mm ports were then removed under direct visualization. The umbilical fascial incision was closed with 0 Vicryl in a figure-eight fashion. The skin wounds were irrigated and closed with 4-0 Monocryl followed by the application of Dermabond. Sponge instrument count at the end of the operation was correct. The patient tolerated procedure well was extubated and transferred to the postoperative care unit in stable condition. Complications: none Post-operative Condition: stable Disposition: Acute Care
--- NOTE | 2020-10-21 17:21 | SUR.PHASEI ---
Pt transfered t0 220. report to Michelle HUFFMAN
[2020-10-21] MEDS: LACTATED RINGERS 1,000 ML 120 ML IV (17:52)
[2020-10-21] MEDS: OXYCODONE IR 5 MG TABLET PO (17:56)
[2020-10-21] MEDS: ACETAMINOPHEN 325 MG TABLET 650 MG PO ×2 (17:56→23:42)
[2020-10-21] MEDS: ONDANSETRON 4 MG/2 ML INJ IV (17:56)
[2020-10-21] MEDS: PIPERACILLIN-TAZO 3.375 GM/50 ML FROZ.PIGGY IV (20:37)
[2020-10-21] MEDS: AMLODIPINE 5 MG TABLET 10 MG PO (20:37)
[2020-10-21] MEDS: KETOROLAC 30 MG/ML VIAL IV (20:52)
[2020-10-22] VITALS (12 sets, daily range): BP systolic 110–135; BP diastolic 65–87; PULSE 78–109; RESP 15–20; TEMP 35.9–37.4; O2SAT 93–99
[2020-10-22] MEDS: KETOROLAC 30 MG/ML VIAL IV ×2 (03:05→10:07)
[2020-10-22] MEDS: ACETAMINOPHEN 325 MG TABLET 650 MG PO ×4 (05:06→23:33)
[2020-10-22] MEDS: PIPERACILLIN-TAZO 3.375 GM/50 ML FROZ.PIGGY IV ×3 (05:07→20:51)
[2020-10-22 06:11] LABS: Hematocrit 34.8 % (36-46); Hemoglobin 11.6 g/dL (12.0-16.0); Mean Corpuscular HGB Conc 33.4 % (30-36); Platelet Count 270 X10^3/uL (150-400); Red Blood Cell Count 3.87 X10^6/uL (4.0-5.2); Red Cell Distribution Width 13.6 % (11.6-14.8); White Blood Cell Count 9.7 X10^3/uL (4.5-11.0)
[2020-10-22 06:13] LABS: Add Manual Diff / Slide Review YES
[2020-10-22 06:22] LABS: BUN Creatinine Ratio 14.8 (6-22); Blood Urea Nitrogen 12 mg/dL (7-17); Calcium 8.8 mg/dL (8.4-10.2); Carbon Dioxide 27 mmol/L (22-32); Chloride 102 mmol/L (98-107); Estimated Glomerular Filt Rate > 60.0 mL/min (>60); Glucose 144 mg/dL (80-110); HEMOLYSIS < 15 (0-50); Sodium 137 mmol/L (137-145)
[2020-10-22 07:07] LABS: Neutrophils Absolute Manual 8148 /uL (3000-5900); Total Cells Counted 100
[2020-10-22 07:08] LABS: RBC Morphology Normal Morphology
[2020-10-22] MEDS: ENOXAPARIN 40 MG/0.4 ML SYRINGE SUBCUT (08:11)
--- NOTE | 2020-10-22 09:08 | P.PN_ITS ---
Subjective Subjective Date Patient Seen: 10/22/20 Time Patient Seen: 09:08 Interval history: No acute overnight events. Tolerating regular diet no nausea, fever. Exam Vital Signs (past 8 hours): - 10/22/20 03:43 10/22/20 04:00 10/22/20 07:55 Temperature 97.1 F L 97.9 F Pulse Rate 82 79 Respiratory Rate 16 16 Blood Pressure 110/65 115/70 Pulse Oximetry 93 93 98 10/22/20 08:00 Temperature Pulse Rate Respiratory Rate Blood Pressure Pulse Oximetry 98 Oxygen Delivery Method Room Air Oxygen Flow Rate 0 Narrative Exam Narrative: Gen-Adult female alert and oriented no distress Abdomen-Soft appropriaely tender to palpation. Drain with murky fluid Objective Labs Result Diagrams: 10/22/20 05:30 10/22/20 05:30 Labs: Laboratory Results - last 24 hr 10/21/20 10/21/20 10/21/20 10:26 10:50 10:50 WBC 10.1 RBC 4.51 Hgb 13.5 Hct 40.3 MCV 89.4 MCH 30.0 MCHC 33.6 RDW 13.4 Plt Count 314 Neut % (Auto) 81.9 H Lymph % (Auto) 8.0 L [place] % (Auto) 8.3 Eos % (Auto) 1.3 L Baso % (Auto) 0.5 Neut # (Auto) 8300 H Lymph # (Auto) 800 L [place] # (Auto) 800 Eos # (Auto) 100 Baso # (Auto) 0 Total Counted Seg Neutrophils % Band Neutrophils % Lymphocytes % (Manual) Monocytes % (Manual) Metamyelocytes % Neutrophils # (Manual) RBC Morphology Sodium 136 L Potassium 3.4 Chloride 100 Carbon Dioxide 25 BUN 13 Creatinine 0.79 Estimated GFR > 60.0 BUN/Creatinine Ratio 16.5 Glucose 124 H Lactate Calcium 9.4 Total Bilirubin 0.5 AST 40 H ALT 39 H Alkaline Phosphatase 83 Total Protein 7.7 Albumin 4.0 Globulin 3.7 Albumin/Globulin Ratio 1.1 Lipase 26 Urine RBC Urine WBC Ur Squamous Epith Cells Urine Bacteria Ur Culture Indicated? SARS-CoV-2 (PCR) Negative 10/21/20 10/21/20 10/22/20 10:50 11:15 05:30 WBC 9.7 RBC 3.87 L Hgb 11.6 L Hct 34.8 L MCV 90.0 MCH 30.0 MCHC 33.4 RDW 13.6 Plt Count 270 Neut % (Auto) Not Reportable Lymph % (Auto) Not Reportable [place] % (Auto) Not Reportable Eos % (Auto) Not Reportable Baso % (Auto) Not Reportable Neut # (Auto) Lymph # (Auto) Not Reportable [place] # (Auto) Not Reportable Eos # (Auto) Baso # (Auto) Not Reportable Total Counted 100 Seg Neutrophils % 76.0 H Band Neutrophils % 8.0 H Lymphocytes % (Manual) 11.0 L Monocytes % (Manual) 4.0 Metamyelocytes % 1.0 H Neutrophils # (Manual) 8148 H RBC Morphology Normal morphology Sodium Potassium Chloride Carbon Dioxide BUN Creatinine Estimated GFR BUN/Creatinine Ratio Glucose Lactate 1.8 Calcium Total Bilirubin AST ALT Alkaline Phosphatase Total Protein Albumin Globulin Albumin/Globulin Ratio Lipase Urine RBC 1-5/hpf Urine WBC 1-5/hpf Ur Squamous Epith Cells 1-5 /hpf Urine Bacteria Moderate (10-30) H Ur Culture Indicated? Cult not indicated SARS-CoV-2 (PCR) 10/22/20 05:30 WBC RBC Hgb Hct MCV MCH MCHC RDW Plt Count Neut % (Auto) Lymph % (Auto) [place] % (Auto) Eos % (Auto) Baso % (Auto) Neut # (Auto) Lymph # (Auto) [place] # (Auto) Eos # (Auto) Baso # (Auto) Total Counted Seg Neutrophils % Band Neutrophils % Lymphocytes % (Manual) Monocytes % (Manual) Metamyelocytes % Neutrophils # (Manual) RBC Morphology Sodium 137 Potassium 4.0 Chloride 102 Carbon Dioxide 27 BUN 12 Creatinine 0.81 Estimated GFR > 60.0 BUN/Creatinine Ratio 14.8 Glucose 144 H Lactate Calcium 8.8 Total Bilirubin AST ALT Alkaline Phosphatase Total Protein Albumin Globulin Albumin/Globulin Ratio Lipase Urine RBC Urine WBC Ur Squamous Epith Cells Urine Bacteria Ur Culture Indicated? SARS-CoV-2 (PCR) [facility] Medical History Carpal tunnel syndrome (~2009) Eczema (~1994) Hyperparathyroidism (~2012) Lung cancer (~2012) Seasonal allergies (~1999) Vision disorder Surgical History Anesthesia History of carpal tunnel repair (~2012) History of lobectomy of lung (~2012) Status post parathyroidectomy (~2012) Family History Father Heart disease Hypertension High cholesterol Mother Age: 95 Afib Deep vein blood clot of right lower extremity Arthritis High cholesterol Sister Age: 62 Asthma Osteoarthritis Grandfather No problems noted. Grandmother Diabetes mellitus Grandfather Cancer Grandmother No problems noted. Social History marital status: unmarried,single number of children: 0 household members: significant other pets and animals: Yes education level: college occupational status: other Smoking Status: Never smoker alcohol intake: current substance use type: does not use Assessment & Plan Post-op Postoperative Procedures: Procedures Operation Date: 10/21/20 14:30 Actual Procedures Side Surgeon p Laparoscopic Appendectomy Kris Pineda MD Postoperative status narrative: 60F POD 1 sp appendectomy for perforated appendicitis with abscess. -Continue Zosyn -Continue abdominal drain -Anticipate discharge home tomorrow with drain and PO antibiotics -DC IV fluids
--- NOTE | 2020-10-22 10:27 | CM.DANOTE ---
Patient is a 60 year old female who was admitted on 10/21/20 for Abd Pain. Pt has [employer] for insurance and her PCP is Dr. Ivelisse Gonsalez. EMR was reviewed. Per Surgeon, pt with acute appendicitis and requiring emergent Lap Appe and pt tolerated surgery yesterday well and today tolerating her diet, no nausea, and ambulating and still has drain currently. Pt likely will be stable for d/c tomorrow on oral abx and no identified barriers to discharge. SW met bedside with pt and explained role and pt confirms she lives in [place] with her Sig pedrito Yosef who is supportive and available to assist at d/c if needed. Pt aware that she will likely d/c with LIEN drain and have outpt follow up with surgeon for removal post d/c. Pt quite active and independent at baseline and was on a boating trip to the [facility] when she developed what she thought was food poisoning. Pt denies any hx of HH or SNF needs and no DME for ambulation. Pt preference is home tomorrow via Sig Other POV if medically stable and does not anticipate any d/c needs at this time. Plan: SW to follow for likely pt d/c home tomorrow with Sig Other assist if medically stable. SW to follow for any further identified needs. VALERIA Costello Discharge Planning/Care Management CM Discharge Assessment Start: 10/22/20 10:26 Freq: Status: Active Protocol: Document 10/22/20 10:26 BF (Rec: 10/22/20 10:27 [id number]) Discharge Planning Assessment Assigned Welder 2Nd Shift VALERIA Lezama DPOA/Assigned Designee Name none Advance Directives? Yes History Provided By Patient,Medical Record Has Patient been admitted in last 30 No days? Prior Living Arrangements House Household Members significant other Type of transporation used prior to Drives own vehicle admit Independent with ADL's Yes Is patient alert and oriented? Yes Caregiver for Another No Barriers to Discharge No Discharge Plan Home Transportation Arrangement [employer] available to transport at d/c Referrals Initiated None needed Whiteboard Updated in Patient Room with Yes name and ext. # of Welder 2Nd Shift Review Status In Process Please Provide Date Initial DC 10/22/20 Assessment Was Performed Next Review Type Continued Stay Review
--- NOTE | 2020-10-22 11:32 | PC.NURSE ---
Pt A&O x3. Ambulating halls with steady gait. Tolerating meals well. Stating she is bloated although passing some gas. Bowel sounds hypoactive. MD at bedside this a.m. evaluating patient and recommending continued observation x1 more day. Slightly cloudy pinkish drainage from LIEN drain 15 cc output this a.m. Reports pain 2/10 well controlled with tylenol and toradol. She ambulates several times every hour around the unit. VSS, afebrile.
[2020-10-22] MEDS: AMLODIPINE 5 MG TABLET 10 MG PO (20:51)
[2020-10-23] VITALS: O2SAT 96
[2020-10-23 03:12] VITALS: BP 117/75; PULSE 89; RESP 16; TEMP 36.8; O2SAT 92
[2020-10-23 04:00] VITALS: O2SAT 92
[2020-10-23] MEDS: ACETAMINOPHEN 325 MG TABLET 650 MG PO (05:01)
[2020-10-23] MEDS: PIPERACILLIN-TAZO 3.375 GM/50 ML FROZ.PIGGY IV (05:01)
[2020-10-23 05:38] LABS: Add Manual Diff / Slide Review YES; Hematocrit 32.5 % (36-46); Hemoglobin 10.9 g/dL (12.0-16.0); Mean Corpuscular HGB Conc 33.5 % (30-36); Mean Corpuscular Hemoglobin 29.9 PG (26-34); Mean Corpuscular Volume 89.3 fL (80-100); Platelet Count 316 X10^3/uL (150-400); Red Blood Cell Count 3.64 X10^6/uL (4.0-5.2); Red Cell Distribution Width 13.7 % (11.6-14.8); White Blood Cell Count 9.7 X10^3/uL (4.5-11.0)
[2020-10-23 05:42] LABS: BUN Creatinine Ratio 15.7 (6-22); Blood Urea Nitrogen 13 mg/dL (7-17); Calcium 8.6 mg/dL (8.4-10.2); Carbon Dioxide 27 mmol/L (22-32); Chloride 106 mmol/L (98-107); Estimated Glomerular Filt Rate > 60.0 mL/min (>60); Glucose 102 mg/dL (80-110); HEMOLYSIS < 15 (0-50); Potassium 3.4 mmol/L (3.4-5.1); Sodium 139 mmol/L (137-145)
[2020-10-23 06:39] LABS: Neutrophils Absolute Manual 6984 /uL (3000-5900); Plasma Cells 2; Total Cells Counted 100
[2020-10-23 06:40] LABS: RBC Morphology Normal Morphology
[2020-10-23] MEDS: OXYCODONE IR 5 MG TABLET PO (07:41)
[2020-10-23 08:00] VITALS: O2SAT 95
[2020-10-23 09:00] VITALS: BP 110/69; PULSE 88; RESP 15; TEMP 36.4; O2SAT 95
[2020-10-23] MEDS: DOCUSATE 100 MG CAPSULE PO (09:27)
[2020-10-23] MEDS: ENOXAPARIN 40 MG/0.4 ML SYRINGE SUBCUT (09:27)
--- NOTE | 2020-10-23 11:54 | PC.NURSE ---
Pt A&Ox4, ambulating independently around the unit. Reports slight increase in pain in abdomen this a.m. States slightly loose stool after prune juices yesterday. Pain well controlled with 5mg oxycodone prn this a.m. Good p.o intake. VSS, afebrile. Drainage 40 cc of cloudy sersanguineous with sediment. Patient evaluated by MD Pineda and cleared for discharge with follow up appointment for drain removal on 10/27. Pt verbalizes understanding of all discharge instructions, follow up and medications. prescriptions escribed to Vamshi Jaeger. RN escorted patient out of facility to meet driving private vehicle, with all of her belongings at 1130.
--- NOTE | 2020-10-23 14:37 | P.DS_ITS ---
History of Present Illness History of Present Illness Chief complaint: stomach pain /fever Narrative: 60-year-old female seen in the emergency room for acute appendicitis. She developed abdominal pain 4 days ago associated with nausea and emesis. She had waxing and waning of her symptoms developed a fever of 103 and ultimately presented to the emergency room today for further evaluation. CT abdomen pelvis demonstrates a dilated appendix no free air or abscess. At admission temperature 99.2 heart rate 95 WBC 10 82% neutrophils. Received IV fluid and Zosyn in the emergency room. No prior abdominal surgery. 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 Not on anticoagulation. Discharge Providers Provider Date of admission: 10/21/20 13:49 Discharge Date: 10/23/20 Primary care physician: Ivelisse Gonsalez DO Consults: 10/21/20 12:40 Consult to General Surgery Stat Comment: Consulting Provider: Kris Auguste Reason for consultation: appy Has provider been notified: Yes Discharge provider: Kris Auguste MD Summary Hospital Course Discharge Diagnosis: Perforated appendicitis Hospital Course: Patient underwent a laparoscopic appendectomy 10/21/2020, demonstrated perforated appendix with associated abscess. She remained in the hospital for IV antibiotic therapy with Zosyn. On the date of discharge 10/23 she is afebrile without leukocytosis pain is well controlled tolerating regular diet ambulatory. She will discharge home with a LIEN drain in place ischial follow up with the surgical clinic next week for drain removal. She will be discharged home on p.o. Augmentin x1 week. Exam Vital Signs (past 8 hours): - 10/23/20 08:00 10/23/20 09:00 Temperature 97.6 F Pulse Rate 88 Respiratory Rate 15 Blood Pressure 110/69 Pulse Oximetry 95 95 Oxygen Delivery Method Room Air Oxygen Flow Rate 0 Narrative Exam Narrative: General adult female alert oriented no acute distress Chest nonlabored respirations Abdomen soft appropriately tender to palpation. Drain murky fluid within the bulb clearer than yesterday Objective Labs Result Diagrams: 10/23/20 05:00 10/23/20 05:00 Labs: Laboratory Results - last 24 hr 10/23/20 10/23/20 05:00 05:00 WBC 9.7 RBC 3.64 L Hgb 10.9 L Hct 32.5 L MCV 89.3 MCH 29.9 MCHC 33.5 RDW 13.7 Plt Count 316 Neut % (Auto) Not Reportable Lymph % (Auto) Not Reportable [place] % (Auto) Not Reportable Eos % (Auto) Not Reportable Baso % (Auto) Not Reportable Lymph # (Auto) Not Reportable [place] # (Auto) Not Reportable Baso # (Auto) Not Reportable Total Counted 100 Seg Neutrophils % 65.0 Band Neutrophils % 7.0 Lymphocytes % (Manual) 18.0 L Monocytes % (Manual) 5.0 Eosinophils % (Manual) 3.0 Neutrophils # (Manual) 6984 H Plasma Cells 2 RBC Morphology Normal morphology Sodium 139 Potassium 3.4 Chloride 106 Carbon Dioxide 27 BUN 13 Creatinine 0.83 Estimated GFR > 60.0 BUN/Creatinine Ratio 15.7 Glucose 102 Calcium 8.6 PFSH Medical History Carpal tunnel syndrome (~2009) Eczema (~1994) Hyperparathyroidism (~2012) Lung cancer (~2012) Seasonal allergies (~1999) Vision disorder Surgical History Anesthesia History of carpal tunnel repair (~2012) History of lobectomy of lung (~2012) Status post parathyroidectomy (~2012) Family History Father Heart disease Hypertension High cholesterol Mother Age: 95 Afib Deep vein blood clot of right lower extremity Arthritis High cholesterol Sister Age: 62 Asthma Osteoarthritis Grandfather No problems noted. Grandmother Diabetes mellitus Grandfather Cancer Grandmother No problems noted. Social History marital status: unmarried,single number of children: 0 household members: significant other pets and animals: Yes education level: college occupational status: other Smoking Status: Never smoker alcohol intake: current substance use type: does not use Discharge Plan Discharge Plan Patient Disposition: Home Provider Discharge Comment: Follow-up October 27 -drain removal in surgical clinic Okay to shower with drain in place do not submerge the wound until seen in follow-up. Discharge orders & Medications Prescriptions: New docusate sodium [Colace] 100 mg capsule 100 mg PO BID Qty: 30 RF: 0 oxycodone 5 mg tablet 5 mg PO Q8H PRN (Reason: pain) Qty: 30 RF: 0 acetaminophen [Tylenol] 325 mg capsule 650 mg PO QID PRN (Reason: pain) Qty: 60 RF: 0 amoxicillin-pot clavulanate [Augmentin] 875-125 mg tablet 1 tab PO BID Qty: 14 RF: 0 Continued ibuprofen [Advil] 200 mg tablet 800 mg PO Q8H PRN (Reason: Pain (Scale Score 1-3)) Qty: 0 RF: 0 aspirin 81 mg Tablet,Delayed Release (Dr/Ec) 81 mg PO BEDTIME RF: 0 amlodipine 10 mg tablet 10 mg PO BEDTIME RF: 0 Follow up/Referrals: Kris Auguste MD [Physician] - 10/27/20 2:45 pm (10/27 @ 2:45 w/dr auguste for drain removal) Diet/Activity/Treatments Diet: Diet as Tolerated Activity: No lifting >20 lbs x 4 weeks. Walking only for exercise for 4 weeks. [address] while taking narcotics. Skin/Wound/Dressing Care Report to your healthcare provider any signs of infection, such as:: chills, fever, increased pain and unusual redness Visit Report/Discharge Packet Instructions: DI for an Appendectomy, DI for Laparoscopy, DI for Lorenzo-Dash Drains, Oxycodone, Amoxicillin and Clavulanic Acid Discharge Data Primary Care Provider: Ivelisse Gonsalez
== END 2020-10-23 11:30 | disposition home or self-care (01) | DRG 340 ==
LOC: ED 13:45 → AC 13:49
PROVIDERS: Admitting Provider Surgery; Emergency Provider Emergency Medicine; PCP Family Medicine; Referring Provider Emergency Medicine; Visit Provider Surgery
PROC: 0DTJ4ZZ Resection of Appendix, Percutaneous Endoscopic Approach (ICD-10-PCS; CPT 44970; principal; 2020-10-21 14:30)
DX: K35.33 Acute appendicitis with perforation, localized peritonitis, and gangrene, with abscess (principal); Z20.822 Contact with and (suspected) exposure to COVID-19
CPT/HCPCS: 36415; 44970; 74177; 80048; 80053; 81003; 81015; 83605; 83690; 85007; 85025; 87040; 87070; 87075; 87077; 87147; 87176; 87186; 87205; 87635; 96361; 96365; 99222; 99284; C9803; J0330; J1100; J1650; J1885; J2250; J2405; J2543; J2704; J3010

== ENCOUNTER → 2020-10-29 14:45 | Outpatient (CLI) | payer OTHER, SELFPAY ==
[2020-10-21 17:18] VITALS: BMI 25.5
[2020-10-29] MEDS: COVID-19 VACC #2, MRNA(MOD) 100 MCG/0.5 ML VIAL IM (14:50)
== END ==
PROVIDERS: PCP Family Medicine; Visit Provider Internal Medicine
DX: Z23 Encounter for immunization (principal)
CPT/HCPCS: 0012A; 91301

== ENCOUNTER → 2022-04-10 10:58 | Outpatient (CLI) | payer OTHER, SELFPAY ==
[2020-10-21 17:18] VITALS: BMI 25.5
--- NOTE | 2022-04-10 10:59 | DI.MG.S_ITS ---
BILATERAL DIGITAL SCREENING MAMMOGRAM 3D/2D WITH CAD: 04/10/2022 CLINICAL: Routine screening. Comparison is made to exams dated: 05/09/2020 mammogram, 09/01/2018 mammogram, and 08/17/2018 mammogram - [facility]. Both breasts are extremely dense, which lowers the sensitivity of mammography (category d />75% glandular tissue). Current study was also evaluated with a Computer Aided Detection (CAD) system. No significant masses, calcifications, or other findings are seen in either breast. There has been no significant interval change. IMPRESSION: NEGATIVE There is no mammographic evidence of malignancy. A 1 year screening mammogram is recommended. Based on the Tyrer Cuzick model (a risk assessment model) the patient's lifetime risk is 13.2% and her 10 year risk is 5.8%. According to the ACR, ACS, and NCCN guidelines, an annual breast MRI exam along with mammogram is recommended if the patient's lifetime risk is 20% or greater. This exam was interpreted at Station ID: [id number]. NOTE: For mammograms, a report in lay terms will be sent to the patient. Approximately 15% of breast malignancies will not be visualized mammographically. In the management of a palpable breast mass, a negative mammogram must not discourage biopsy of a clinically suspicious lesion. Electronically Signed By: Rocío goldsmith/angelo:04/12/2022 09:49:32 letter sent: Normal Exam ACR BI-RADS Category 1: Negative 3341F
== END ==
PROVIDERS: PCP Family Medicine; Referring Provider Family Medicine; Visit Provider Family Medicine
DX: Z12.31 Encounter for screening mammogram for malignant neoplasm of breast (principal)
CPT/HCPCS: 77063; 77067

== ENCOUNTER → 2022-04-16 15:32 | Outpatient (CLI) | payer OTHER, SELFPAY ==
[2020-10-21 17:18] VITALS: BMI 25.5
--- NOTE | 2022-04-16 15:33 | DI.CT.S_ITS ---
PROCEDURE: CT CHEST WO CON INDICATIONS: compare with previous tests done: 02/13/18 05/09/20 TECHNIQUE: Noncontrast 5 mm thick sections acquired from the pulmonary apices to the posterior costophrenic angles. 1 mm lung window, 5 mm thick coronal and sagittal and 7 mm axial MIP reformats were then acquired. For radiation dose reduction, the following was used: automated exposure control, adjustment of mA and/or kV according to patient size. COMPARISON: [facility], CT, CT CHEST WO CON, 05/09/2020, 15:45. FINDINGS: Image quality: Excellent. Lungs and pleura: No acute air space opacities. Mild atelectatic lung is present within the medial left upper lobe. Postoperative changes redemonstrated within the posterior right lung. No findings to suggest tumor recurrence. No pleural effusions or pneumothorax. Central and peripheral airways are patent and normal in caliber. Mediastinum: Heart size is normal. No pericardial effusion. No mediastinal adenopathy by size criteria. Thoracic aorta and central pulmonary arteries are normal in size. Esophagus is normal in caliber. No hiatal hernia. Bones and chest wall: No suspicious bony lesions. No vertebral body compression fractures. No axillary or supraclavicular adenopathy by size criteria. Thyroid gland unremarkable. Abdomen: Visualized upper abdominal solid organs and bowel loops appear normal in the absence of contrast. IMPRESSION: Postoperative change in the right lower lung. No findings to suggest tumor recurrence. Dictated by: Rocío Serna M.D. on 04/16/2022 at 17:09 Approved by: Rocío Serna M.D. on 04/16/2022 at 17:12
== END ==
PROVIDERS: PCP Family Medicine; Referring Provider Family Medicine; Visit Provider Family Medicine
DX: Z85.110 Personal history of malignant carcinoid tumor of bronchus and lung (principal); Z90.2 Acquired absence of lung [part of]; Z08 Encounter for follow-up examination after completed treatment for malignant neoplasm
CPT/HCPCS: 71250

== ENCOUNTER → 2022-05-11 10:26 | Outpatient (CLI) | payer OTHER, SELFPAY ==
[2020-10-21 17:18] VITALS: BMI 25.5
[2022-05-11 12:15] LABS: Add Manual Diff / Slide Review NO; Basophils Absolute Auto 100 /uL (0-100); Basophils Percent Auto 1.3 % (0-2); Eosinophils Absolute Auto 300 /uL (0-450); Eosinophils Percent Auto 7.7 % (2-4); Hematocrit 42.2 % (36-46); Hemoglobin 13.8 g/dL (12.0-16.0); Lymphocytes Absolute Auto 1400 /uL (1100-4500); Lymphocytes Percent Auto 31.2 % (25-40); Mean Corpuscular HGB Conc 32.6 % (30-36); Mean Corpuscular Hemoglobin 29.8 PG (26-34); Mean Corpuscular Volume 91.5 fL (80-100); Monocytes Absolute Auto 300 /uL (0-900); Monocytes Percent Auto 7.7 % (3-14); Neutrophils Absolute Auto 2300 /uL (1500-7000); Neutrophils Percent Auto 52.1 % (50-75); Platelet Count 280 X10^3/uL (150-400); Red Blood Cell Count 4.62 X10^6/uL (4.0-5.2); Red Cell Distribution Width 13.3 % (11.6-14.8); White Blood Cell Count 4.4 X10^3/uL (4.5-11.0)
[2022-05-11 12:56] LABS: Alanine Aminotransferase 27 IU/L (<35); Albumin 4.6 g/dL (3.5-5.0); Albumin Globulin Ratio 1.5 (1.0-2.8); Alkaline Phosphatase 79 U/L (38-126); Aspartate Aminotransferase 28 IU/L (14-36); BUN Creatinine Ratio 22.2 (6-22); Bilirubin Total 0.4 mg/dL (0.2-1.3); Blood Urea Nitrogen 18 mg/dL (7-17); Calcium 9.3 mg/dL (8.4-10.2); Carbon Dioxide 29 mmol/L (22-32); Chloride 102 mmol/L (98-107); Cholesterol 277 mg/dL (140-199); Estimated Glomerular Filt Rate > 60 mL/min (>60); Glucose 90 mg/dL (80-110); HDL Cholesterol 101 mg/dL (40-60); HEMOLYSIS < 15 (0-50); LDL Cholesterol Calculated 163 mg/dL (<100); Potassium 4.7 mmol/L (3.4-5.1); Sodium 140 mmol/L (137-145); Total Protein 7.6 g/dL (6.3-8.2); Triglycerides 67 mg/dL (35-150)
[2022-05-11 13:17] LABS: Thyroid Stimulating Hormone 0.802 uIU/mL (0.47-4.68)
[2022-05-11 15:43] LABS: Creatinine Urine Random 33.2 mg/dL
[2022-05-11 15:51] LABS: Microalbumin Urine Random < 0.6 mg/dL (0-1.6)
== END ==
PROVIDERS: PCP Family Medicine; Referring Provider Family Medicine; Visit Provider Family Medicine
DX: I10 Essential (primary) hypertension (principal); Z85.110 Personal history of malignant carcinoid tumor of bronchus and lung; Z86.39 Personal history of other endocrine, nutritional and metabolic disease
CPT/HCPCS: 36415; 80053; 80061; 82043; 82570; 84443; 85025

== ENCOUNTER → 2023-06-01 16:49 | Outpatient (CLI) | payer OTHER, SELFPAY ==
[2020-10-21 17:18] VITALS: BMI 25.5
--- NOTE | 2023-06-01 | DI.MG.S_ITS ---
BILATERAL DIGITAL SCREENING MAMMOGRAM 3D/2D WITH CAD: 06/01/2023 CLINICAL: Routine screening. Comparison is made to exams dated: 04/10/2022 mammogram, 05/09/2020 mammogram, and 08/17/2018 mammogram - [facility]. Both breasts are extremely dense, which lowers the sensitivity of mammography (category d />75% glandular tissue). Current study was also evaluated with a Computer Aided Detection (CAD) system. No significant masses, calcifications, or other findings are seen in either breast. IMPRESSION: NEGATIVE There is no mammographic evidence of malignancy. A 1 year screening mammogram is recommended. Based on the Tyrer Cuzick model (a risk assessment model) the patient's lifetime risk is 12.8% and her 10 year risk is 5.8%. According to the ACR, ACS, and NCCN guidelines, an annual breast MRI exam along with mammogram is recommended if the patient's lifetime risk is 20% or greater. This exam was interpreted at Station ID: [id number]. NOTE: For mammograms, a report in lay terms will be sent to the patient. Approximately 15% of breast malignancies will not be visualized mammographically. In the management of a palpable breast mass, a negative mammogram must not discourage biopsy of a clinically suspicious lesion. Electronically Signed By: Bernie Guillaume M.D., PH.D gigi/angelo:06/02/2023 13:55:39 letter sent: Normal Exam ACR BI-RADS Category 1: Negative 3341F
== END ==
PROVIDERS: PCP Family Medicine; Referring Provider Family Medicine; Visit Provider Family Medicine
DX: Z12.31 Encounter for screening mammogram for malignant neoplasm of breast (principal)
CPT/HCPCS: 77063; 77067

== ENCOUNTER → 2023-06-30 10:05 | Outpatient (CLI) | payer OTHER, SELFPAY ==
[2020-10-21 17:18] VITALS: BMI 25.5
[2023-06-30 11:39] LABS: Alanine Aminotransferase 34 IU/L (<35); Albumin 4.6 g/dL (3.5-5.0); Albumin Globulin Ratio 1.4 (1.0-2.8); Alkaline Phosphatase 79 U/L (38-126); BUN Creatinine Ratio 23.8 (6-22); Bilirubin Total 0.6 mg/dL (0.2-1.3); Blood Urea Nitrogen 19 mg/dL (7-17); Carbon Dioxide 30 mmol/L (22-32); Chloride 102 mmol/L (98-107); Cholesterol 291 mg/dL (140-199); Estimated Glomerular Filt Rate > 60 mL/min (>60); Globulin 3.3 g/dL (1.7-4.1); Glucose 95 mg/dL (80-110); HDL Cholesterol 92 mg/dL (40-60); HEMOLYSIS < 15 (0-50); LDL Cholesterol Calculated 181 mg/dL (<100); Potassium 4.7 mmol/L (3.4-5.1); Sodium 138 mmol/L (137-145); Total Protein 7.9 g/dL (6.3-8.2); Triglycerides 92 mg/dL (35-150)
[2023-07-01 15:12] LABS: Aspartate Aminotransferase 35 IU/L (14-36)
== END ==
PROVIDERS: PCP Family Medicine; Referring Provider Family Medicine; Visit Provider Family Medicine
DX: I10 Essential (primary) hypertension (principal); E78.00 Pure hypercholesterolemia, unspecified
CPT/HCPCS: 36415; 80053; 80061

== ENCOUNTER → 2023-07-21 10:17 | Outpatient (CLI) | payer OTHER, SELFPAY ==
[2020-10-21 17:18] VITALS: BMI 25.5
--- NOTE | 2023-07-21 10:18 | DI.CT.S_ITS ---
PROCEDURE: CT CHEST WO CON INDICATIONS: Follow-up monitoring carcinoid tumor, s/p lobectomy TECHNIQUE: Noncontrast 2.0-2.5 mm thick sections acquired from the pulmonary apices to the posterior costophrenic angles. 7 mm thick axial MIP and 5 mm coronal and sagittal reformats were then acquired. For radiation dose reduction, the following was used: automated exposure control, adjustment of mA and/or kV according to patient size. COMPARISON: [facility], CT, CT CHEST WO [facility], 04/16/2022, 15:34. FINDINGS: Image quality: Diagnostic. Lower Neck: No enlarged lymph nodes by CT criteria noting limitations of study with no IV contrast. Thyroid: No thyroid nodules which require follow-up per consensus is guidelines Axillae: No enlarged lymph nodes. Chest Wall: Unremarkable. Bones: Unremarkable. Lungs and Pleura: No pneumothorax or pleural effusions. No consolidation or suspicious nodule seen Heart: Heart size is normal. No pericardial effusion. Thoracic Vessels: The aorta and pulmonary arteries demonstrate normal size. Mediastinum and Yolie: No enlarged lymph nodes. Esophagus: No wall thickening. No hiatal hernia. Upper Abdomen: 8 mm hypodensity in the dome of the liver appears unchanged (54/2). 7 mm cystic lesion in the dome of the liver (46/2) also appears unchanged. IMPRESSION: 1. No evidence of new or growing tumor. 2. Subcentimeter hypodensities in the liver dome appear unchanged in size since 04/16/2022 and are too small to further evaluate. Dictated by: Naveed Goins M.D. on 07/22/2023 at 13:54 Approved by: Naveed Goins M.D. on 07/22/2023 at 15:48
== END ==
LOC: CT 10:18
PROVIDERS: PCP Family Medicine; Referring Provider Family Medicine; Visit Provider Family Medicine
DX: Z85.110 Personal history of malignant carcinoid tumor of bronchus and lung (principal); Z08 Encounter for follow-up examination after completed treatment for malignant neoplasm
CPT/HCPCS: 71250

== ENCOUNTER → 2024-02-09 09:18 | Outpatient (CLI) | payer OTHER, SELFPAY ==
[2020-10-21 17:18] VITALS: BMI 25.5
--- NOTE | 2024-02-09 09:20 | DI.RAD.S_ITS ---
PROCEDURE: XR HIP W PEL IF DONE RT 2V INDICATIONS: Chronic right hip pain TECHNIQUE: AP pelvis with lateral view(s) of the right hip(s). COMPARISON: None. FINDINGS: Bones: No fractures or dislocations. Pelvic ring appears intact. No suspicious bony lesions. 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 Degenerative changes along the pubic symphysis and visualized lower lumbar spine. The bones are diffusely osteopenic. Soft tissues: The visualized bowel gas pattern is normal. No suspicious soft tissue calcifications. Phleboliths within the right hemipelvis. IMPRESSION: 1. No acute fracture or dislocation. 2. 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 Dictated by: Iggy Garza M.D. on 02/09/2024 at 15:18 Approved by: Iggy Garza M.D. on 02/09/2024 at 15:20
--- NOTE | 2024-02-09 09:20 | DI.RAD.S_ITS ---
PROCEDURE: XR LUMBAR SPINE 2-3V INDICATIONS: Chronic low back pain TECHNIQUE: 3 views of the lumbar spine were acquired. COMPARISON: None. FINDINGS: Bones: 5 [id number] vertebrae are present. Grade 1 anterolisthesis of L4 on L5. Grade 1 retrolisthesis of L1 on L2. No vertebral body compression fractures. No suspicious bony lesions. Osteoarthritic changes of both SI joints. Multilevel facet arthropathy. Soft tissues: Overlying bowel gas pattern is normal. No suspicious soft tissue calcifications. IMPRESSION: 1. No compression deformity. 2. Grade 1 anterolisthesis of L4 on L5. Grade 1 retrolisthesis of L1 on L2. 3. Osteoarthritic changes of both SI joints. Dictated by: Iggy Garza M.D. on 02/09/2024 at 15:21 Approved by: Iggy Garza M.D. on 02/09/2024 at 15:27
--- NOTE | 2024-02-09 09:20 | DI.RAD.S_ITS ---
PROCEDURE: XR FINGER LT MIN 2V INDICATIONS: persistent swelling, injury TECHNIQUE: AP hand, one view of the hand and two views of of the 2nd finger(s) acquired. COMPARISON: None. FINDINGS: Bones: There is a mildly displaced oblique fracture of the middle phalanx of the 2nd digit. The fracture line does not extend to the articular surface. No suspicious bony lesions. Mild osteoarthritis of the hand. Soft tissues: No suspicious soft tissue calcifications. Soft tissue swelling overlying the 2nd digit. IMPRESSION: There is a mildly displaced oblique fracture of the middle phalanx of the 2nd digit. The fracture line does not extend to the articular surface. Dictated by: Iggy Garza M.D. on 02/09/2024 at 15:12 Approved by: Iggy Garza M.D. on 02/09/2024 at 15:17
== END ==
PROVIDERS: PCP Family Medicine; Referring Provider Family Medicine; Visit Provider Family Medicine
DX: S62.621A Displaced fracture of middle phalanx of left index finger, initial encounter for closed fracture (principal); M19.042 Primary osteoarthritis, left hand; M16.0 Bilateral primary osteoarthritis of hip; M47.818 Spondylosis without myelopathy or radiculopathy, sacral and sacrococcygeal region; M47.816 Spondylosis without myelopathy or radiculopathy, lumbar region; M43.16 Spondylolisthesis, lumbar region; M25.551 Pain in right hip; M79.89 Other specified soft tissue disorders; M54.50 Low back pain, unspecified; G89.29 Other chronic pain
CPT/HCPCS: 72100; 73140; 73502

== ENCOUNTER → 2024-07-02 11:44 | Outpatient (CLI) | payer MEDICARE, SELFPAY ==
[2020-10-21 17:18] VITALS: BMI 25.5
--- NOTE | 2024-07-02 11:47 | DI.MG.S_ITS ---
BILATERAL DIGITAL SCREENING MAMMOGRAM 3D/2D WITH CAD: 07/02/2024 CLINICAL: Routine screening. Comparison is made to exams dated: 06/01/2023 mammogram, 04/10/2022 mammogram, and 05/09/2020 mammogram - [facility]. The breasts are extremely dense, which lowers the sensitivity of mammography (category d />75% glandular tissue). Current study was also evaluated with a Computer Aided Detection (CAD) system. No significant masses, calcifications, or other findings are seen in either breast. There has been no significant interval change. IMPRESSION: NEGATIVE There is no mammographic evidence of malignancy. A 1 year screening mammogram is recommended. Based on the Tyrer Cuzick model (a risk assessment model) the patient's lifetime risk is 16.9% and her 10 year risk is 8.4%. According to the ACR, ACS, and NCCN guidelines, an annual breast MRI exam along with mammogram is recommended if the patient's lifetime risk is 20% or greater. This exam was interpreted at Station ID: [id number]. NOTE: For mammograms, a report in lay terms will be sent to the patient. Approximately 15% of breast malignancies will not be visualized mammographically. In the management of a palpable breast mass, a negative mammogram must not discourage biopsy of a clinically suspicious lesion. Electronically Signed By: Bernie Guillaume M.D., Ph.D. [email or web address]:07/03/2024 09:14:43 letter sent: Normal Exam ACR BI-RADS Category 1: Negative
== END ==
PROVIDERS: PCP Family Medicine; Referring Provider Family Medicine; Visit Provider Family Medicine
DX: Z12.31 Encounter for screening mammogram for malignant neoplasm of breast (principal); R92.343 Mammographic extreme density, bilateral breasts
CPT/HCPCS: 77063; 77067

== ENCOUNTER → 2024-08-24 08:53 | Outpatient (CLI) | payer MEDICARE, SELFPAY ==
[2020-10-21 17:18] VITALS: BMI 25.5
[2024-08-24 09:51] LABS: Add Manual Diff / Slide Review NO; Basophils Absolute Auto 100 /uL (0-100); Basophils Percent Auto 1.3 % (0-2); Eosinophils Absolute Auto 400 /uL (0-450); Eosinophils Percent Auto 7.7 % (2-4); Hematocrit 42.2 % (36-46); Lymphocytes Absolute Auto 1600 /uL (1100-4500); Lymphocytes Percent Auto 35.4 % (25-40); Mean Corpuscular HGB Conc 33.2 % (30-36); Mean Corpuscular Hemoglobin 30.4 PG (26-34); Mean Corpuscular Volume 91.5 fL (80-100); Monocytes Absolute Auto 400 /uL (0-900); Monocytes Percent Auto 8.4 % (3-14); Neutrophils Absolute Auto 2200 /uL (1500-7000); Neutrophils Percent Auto 47.2 % (50-75); Platelet Count 275 X10^3/uL (150-400); Red Blood Cell Count 4.61 X10^6/uL (4.0-5.2); White Blood Cell Count 4.6 X10^3/uL (4.5-11.0)
== END ==
PROVIDERS: PCP Family Medicine; Referring Provider Family Medicine; Visit Provider Family Medicine
DX: E78.00 Pure hypercholesterolemia, unspecified (principal); I10 Essential (primary) hypertension; Z79.899 Other long term (current) drug therapy; Z86.39 Personal history of other endocrine, nutritional and metabolic disease
CPT/HCPCS: 85025

== ENCOUNTER → 2024-08-31 08:54 | Outpatient (CLI) | payer MEDICARE, SELFPAY ==
[2020-10-21 17:18] VITALS: BMI 25.5
[2024-08-31 09:52] LABS: Alanine Aminotransferase 27 IU/L (<35); Albumin 4.5 g/dL (3.5-5.0); Albumin Globulin Ratio 1.7 (1.0-2.8); Alkaline Phosphatase 81 U/L (38-126); Aspartate Aminotransferase 34 IU/L (14-36); BUN Creatinine Ratio 16.3 (6-22); Bilirubin Total 0.6 mg/dL (0.2-1.3); Blood Urea Nitrogen 14 mg/dL (7-17); Carbon Dioxide 27 mmol/L (22-32); Chloride 103 mmol/L (98-107); Cholesterol 298 mg/dL (140-199); Estimated Glomerular Filt Rate > 60 mL/min (>60); Globulin 2.7 g/dL (1.7-4.1); Glucose 92 mg/dL (80-110); HDL Cholesterol 100 mg/dL (40-60); HEMOLYSIS < 15 (0-50); LDL Cholesterol Calculated 183 mg/dL (<100); Potassium 4.4 mmol/L (3.4-5.1); Sodium 138 mmol/L (137-145); Total Protein 7.2 g/dL (6.3-8.2); Triglycerides 74 mg/dL (35-150)
== END ==
LOC: LAB 08:55
PROVIDERS: PCP Family Medicine; Referring Provider Family Medicine; Visit Provider Family Medicine
DX: I10 Essential (primary) hypertension (principal); E78.00 Pure hypercholesterolemia, unspecified; Z86.39 Personal history of other endocrine, nutritional and metabolic disease; Z79.899 Other long term (current) drug therapy
CPT/HCPCS: 80053; 80061

== ENCOUNTER → 2024-09-10 16:57 | Outpatient (CLI) | payer MEDICARE, SELFPAY ==
[2020-10-21 17:18] VITALS: BMI 25.5
--- NOTE | 2024-09-10 16:58 | DI.RAD.S_ITS ---
PROCEDURE: XR CHEST 2V INDICATIONS: Cough TECHNIQUE: 2 views of the chest were acquired. COMPARISON: None. FINDINGS: Heart, mediastinum and pulmonary vascular: Heart is normal in size and configuration. Mediastinum is unremarkable. Pulmonary vascular is normal. Lungs: Lateral right costophrenic angle is blunted by small effusion Pleural spaces: Normal-no effusions or pneumothorax. Bones and soft tissues: Normal IMPRESSION: Small right pleural effusion. Dictated by: Evelio Cardoso M.D. on 09/11/2024 at 11:57 Approved by: Evelio Cardoso M.D. on 09/11/2024 at 11:58
== END ==
PROVIDERS: PCP Family Medicine; Referring Provider Nurse Practitioner Family; Visit Provider Nurse Practitioner Family
DX: J90 Pleural effusion, not elsewhere classified (principal); R05.9 Cough, unspecified
CPT/HCPCS: 71046